=== PATIENT | female | born 1980 ===

== ENCOUNTER 2016-03-28 11:15 | Outpatient (CLI) | payer OTHER ==
[2016-03-28 12:19] VITALS: BMI 33.8
== END 2016-03-28 12:34 | disposition home or self-care (01) ==
LOC: FBCOUT 11:15 → FBC 11:15 → FBCOUT 12:34
PROVIDERS: ATTEND Advanced Practice Midwife
DX: O42.90 Premature rupture of membranes, unspecified as to length of time between rupture and onset of labor, unspecified weeks of gestation (principal); Z3A.00 Weeks of gestation of pregnancy not specified
CPT/HCPCS: 59025; 81002; G0463

== ENCOUNTER 2016-03-28 14:51 | Inpatient (IN) | payer OTHER ==
[2016-03-28 15:38] VITALS: BMI 33.8
[2016-03-28] MEDS ORDERED: IV START KIT ONE (15:55)
[2016-03-28] MEDS ORDERED: OXYTOCIN 10 UNITS/ML VIAL ONE ×2 (15:55→23:31)
[2016-03-28] MEDS ORDERED: SODIUM CHLORIDE 0.9% FLUSH 10 ML ONE (15:55)
[2016-03-28] MEDS ORDERED: MINERAL OIL 25 ML BOT ONE (15:55)
[2016-03-28] MEDS ORDERED: OXYTOCIN IN LR 0 ML IV ONE (15:56)
[2016-03-28] MEDS ORDERED: LIDOCAINE 1% (PRES FREE) 30 ML VIAL ONE (15:56)
[2016-03-28] MEDS ORDERED: LIDOCAINE Viscous 2% 15 ML UDCUP ONE (15:56)
[2016-03-28] MEDS ORDERED: PUMP TUBING ONE (15:56)
--- NOTE | 2016-03-28 15:57 | PCMAN ---
OB Admission Note - History : 2 Term: 1 : 0 Abortions (S&E): 0 Livin EDC:: 04/18/16 Gestational Age (weeks): 37 Days (#/7): 0 Admit Presentaton:: vertex by ultrasound Membrane Status: Ruptured Rupture (Date): 03/28/16 Rupture (Time): 07:30 Membranes Comment:: clear Contractions: Yes Contraction Frequency:: mild, irregular Heart Rate:: 125 Status:: Category 1 EFW:: 7 # Summary of Course:: Started care at [facility] and had one visit and a dating US that confirmed her menstrual dates. Transferred to us at 20 weeks after gap in care due to insurance change. Had consistent care since then with participation in [facility] . 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 Had spontaneous rupture of membranes with clear fluid this AM at 0730. GBS negative. Presented for evaluation this AM and was sent to walk for awhile- returned after 3 hours with early labor contractions. - Labs Blood Type: O (+) positive Hct/Hgb:: 11.2 Rubella Status: Non-immune GBS Status: Negative - Physical Exam Psych/Mental Status: Mood/Affect Appropriate Lungs: Clear to Auscultation Bilaterally Cardiovascular: Regular Rate and Rhythm Genitourinary: Normal Female Genitalia Rectal Exam: Deferred Extremities: Full ROM Skin: Normal Color, Warm, Dry - Problems (1) Premature rupture of membranes Status: Acute Code: O42.90 Assessment/Plan: A: Premature rupture of membranes at 37 weeks gestation P: Assess cx for need for ripening vs pitocin when able. Anticipate . Pt undecided about epidural, IV site and labs drawn.
[2016-03-28 17:23] LABS: HEMATOCRIT 32.1 % (37.0-47.0); HEMOGLOBIN 10.3 gm/l (12.0-16.0); MEAN CELL VOLUME 82.1 fl (81.0-99.0); MEAN CORPUSCULAR HEMOGLOBIN 26.3 pg (27.0-31.0); MEAN CORPUSCULAR HGB CONC 32.1 g/dl (33.0-37.0); RED CELL DISTRIBUTION WIDTH 14.3 % (11.5-14.5)
[2016-03-28] MEDS ORDERED: FAMOTIDINE 20 MG TABLET PO SCH (17:30)
[2016-03-28] MEDS ORDERED: CEFAZOLIN SODIUM 2 GRAM DUPLEX 2 G in Premix (D5W) 50 ml 1 EACH IV PRN (22:11)
[2016-03-28] MEDS ORDERED: LACTATED RINGERS 1,000 ML IV SCH (22:15)
--- NOTE | 2016-03-28 22:28 | PDOC36 ---
Provider Note Subject: Pre-op Note. Note: An is a 35 yo G2 para1, with SROM approx 15 hours ago, GBS neg. She is not yet in active labor but is starting to have some strong contractions. Unfortunately, baby is now in a breech position, buttocks presenting with feet to maternal right. Options discussed with pt and . section recommended. Possibility of waiting till morning discussed but I am concerned about the risk of cord prolapse, prolapse of a foot, labor, infection. Risks of the surgery and anesthesia reviewed. Consent discussed and signed. Formal US shows Breech, AMBER only 2.6cm. Posterior placenta. Imp: SROM 37 weeks with breech presentation. Plan: Primary section.
[2016-03-28] MEDS ORDERED: MORPHINE SULFATE (DURAMORPH) 1 MG/ML 10ML AMP ONE (22:30)
--- NOTE | 2016-03-28 22:30 | PDOC36 ---
Provider Note Subject: S: An is feeling ready to get her induction going. She just ate dinner. She reports very occasional, mild contractions. O: SVE: 2cm/50%/-2 Fetus: Baseline 125, moderate variability, accels present, decels absent Contractions: occasional, mild Vitals: BP 129/80, Temp 97.7 F, HR 71, RR 14 A: 35yo at 37w0d Fetus Category 1 Breech presentation PROM-x15hrs, clear fluid, vitals stable, afebrile GBS negative Hypothyroidism P: Initially discussed IOL methods with patient prior to knowledge of breech presentation. Patient was previously scanned by CNM & RN on admission to [facility] and thought to be vertex at this time. Prior to initiating misoprostol administration, CNM scanned pt with large bedside ultrasound and found patient to be breech. A formal ultrasound was ordered and breech presentation was confirmed. This was reviewed with the patient and a c/s was recommended. Dr. Caban was notified and she discussed her recommendations with the patient (see her note). Pt was tearful, but understanding of situation and agreed to a primary c/s for breech presentation. OR team called in. Fluid bolus and NPO status initiated.
[2016-03-28] MEDS ORDERED: CEFAZOLIN SODIUM 2 GRAM DUPLEX 50 ML IV ONE (22:41)
[2016-03-28] MEDS ORDERED: BUPIVACAINE 0.75% SPINAL AMPUL 2 ML ONE (23:31)
[2016-03-28] MEDS ORDERED: METOCLOPRAMIDE HCL 5 MG/ML 2ML VIAL ONE (23:31)
[2016-03-28] MEDS ORDERED: SPINAL PROCEDURAL TRAY 1 EACH ONE (23:31)
[2016-03-29] MEDS ORDERED: LANOLIN 50 APPLIC/7G TUBE TP PRN (00:50)
[2016-03-29] MEDS ORDERED: MEASLES,MUMPS&RUBELLA VACCINE 0.5 ML VIAL SUB-Q V ONE (00:50)
[2016-03-29] MEDS ORDERED: OXYTOCIN IN LR 500 ML IV ONE (00:50)
[2016-03-29] MEDS ORDERED: DIPHTH,PERTUSS(ACELL),TET VAC 0.5 ML VIAL IM V ONE (00:50)
[2016-03-29] MEDS ORDERED: MORPHINE SULFATE 10 MG/ML SYRINGE IV PRN (01:00)
[2016-03-29] MEDS ORDERED: NALOXONE HCL 0.4 MG/ML VIAL IV PRN (01:00)
[2016-03-29] MEDS ORDERED: ONDANSETRON 4 MG/2ML 2 ML VIAL IV PRN ×2 (01:00→23:00)
[2016-03-29] MEDS ORDERED: EPHEDRINE SULFATE 50 MG/ML 1ML VIAL IV PRN (01:00)
[2016-03-29] MEDS ORDERED: NALBUPHINE HCL 20 MG/ML AMP IV PRN (01:00)
[2016-03-29] MEDS ORDERED: MORPHINE SULFATE 2 MG/ML SYRINGE IV PRN (01:00)
[2016-03-29] MEDS ORDERED: MORPHINE SULFATE 4 MG/ML SYRINGE IV PRN (01:00)
[2016-03-29] MEDS ORDERED: SODIUM CHLORIDE 0.9% 100 ML IV PRN (01:02)
[2016-03-29] MEDS ORDERED: PROMETHAZINE HCL 12.5 MG in SODIUM CHLORIDE 0.9% 50 ML IV PRN (01:02)
[2016-03-29] MEDS ORDERED: PROMETHAZINE HCL 6.25 MG in SODIUM CHLORIDE 0.9% 50 ML IV PRN (01:02)
[2016-03-29] MEDS: KETOROLAC TROMETHAMINE 30 MG/ML 1 ML VIAL IV SCH ×4 (01:28→20:38)
[2016-03-29] MEDS: DIPHENHYDRAMINE HCL 50 MG/1 ML VIAL IV PRN ×2 (03:03→04:31)
[2016-03-29] MEDS ORDERED: PUMP TUBING ONE (04:21)
[2016-03-29 06:03] LABS: HEMATOCRIT 30.2 % (37.0-47.0); HEMOGLOBIN 9.7 gm/l (12.0-16.0); MEAN CELL VOLUME 83.2 fl (81.0-99.0); MEAN CORPUSCULAR HEMOGLOBIN 26.7 pg (27.0-31.0); MEAN CORPUSCULAR HGB CONC 32.1 g/dl (33.0-37.0)
--- NOTE | 2016-03-29 06:44 | US ---
EXAMINATION : OB LIMITED HISTORY: Confirm breech presentation.. Estimated gestational age 37 weeks 0 days. 2 para 1. Estimated date of delivery 04/18/2016. COMPARISONS: No prior imaging at this facility. FINDINGS: heart rate is 135 bpm. Presentation is breech with fetus facing maternal right. Placenta is posterior in location. The total bladder and stomach are within normal limits. AMBER measures 2.59 cm. IMPRESSION: Live intrauterine fetus in breech presentation as described. Findings were communicated by [facility] to the [facility] at 2144 hours 03/28/2016
[2016-03-29] MEDS: DOCUSATE SODIUM 100 MG CAPSULE PO SCH ×2 (07:29→20:38)
--- NOTE | 2016-03-29 08:15 | PCMBPN ---
Brief Post Op Note: Date of Procedure: 03/29/16 Start Time: 03/28/16 23:14 Preoperative Diagnosis: 1. Breech after SROM at term Postoperative Diagnosis: 1. Same Procedure: Primary c/section (lower uterine segment transverse incision) Surgeon: Danyell Caban Assist:Dejuan Gonzalez Anesthesia: spinal Findings: LSA breech with legs extended, girl, minimal fluid, lots of vernix BT 23:23, 9/9, weight 7lb 2 Condition: good Complications: none IV Fluids: mLs of LR Urine Output: mLs Estimated Blood Loss: 500 mLs Tourniquet Time: N/A Specimens: N/A Implants: N/A Drains: N/A
--- NOTE | 2016-03-29 10:07 | PDOC44 ---
- Subjective Day: 1 (Pt delivered just before midnight.) Resting in bed, but ready to get up and about. Pain is ok. Bleeding normal. Typical post-op course described. Reports Flatus, Reports Pain Tolerable, Reports , Reports Lochia Light - Objective Temp Pulse Resp BP Pulse Ox 98.5 F 66 16 109/69 97 03/29/16 07:34 03/29/16 07:34 03/29/16 07:34 03/29/16 07:34 03/29/16 03:00 Lab Results 03/29/16 03/28/16 05:30 16:51 WBC 12.6 H 11.3 H RBC 3.63 L 3.91 L Hgb 9.7 L 10.3 L Hct 30.2 L 32.1 L Plt Count 207 251 03/29/16 03/28/16 05:30 16:51 MCH 26.7 L 26.3 L MCHC 32.1 L 32.1 L Current Medications Generic Name Dose Route Start Last Admin Trade Name Freq PRN Reason Stop Dose Admin Diphenhydramine HCl 25 mg 03/29/16 23:00 Benadryl PO Q6H PRN Itching (Mild/Moderate) Diphenhydramine HCl 25 mg 03/29/16 23:00 Benadryl IV Q6H PRN Itching (Severe) Diphenhydramine HCl 25 - 50 mg 03/29/16 01:00 03/29/16 04:31 Benadryl IV 03/29/16 23:00 25 mg Q4H PRN Administration Itching Docusate Sodium 100 mg 03/29/16 09:00 03/29/16 07:29 Colace PO 100 mg BID JAYSON Administration Emollient Ointment 1 applic 03/29/16 00:50 [id number] TP PRN PRN sore nipples Ephedrine Sulfate 5 - 10 mg 03/29/16 01:00 Ephedrine Sulfate IV 03/29/16 23:00 Q5M PRN Lactated Ringer's 1,000 mls @ 125 mls/hr 03/29/16 00:50 Lactated Ringers IV .Q8H JAYSON Promethazine HCl 6.25 mg/ 50.25 mls @ 200 mls/hr 03/29/16 01:02 Sodium Chloride IV 03/29/16 23:00 Q4H PRN Nausea/Vomiting Promethazine HCl 12.5 mg/ 50.5 mls @ 200 mls/hr 03/29/16 01:02 Sodium Chloride IV 03/29/16 23:00 Q4H PRN Nausea/Vomiting Sodium Chloride 100 mls @ 400 mls/hr 03/29/16 01:02 Sodium Chloride 0.9% IV 03/29/16 23:00 X1 PRN FLUSH Ibuprofen 800 mg 03/30/16 02:00 Motrin PO Q6H PRN Pain Ketorolac Tromethamine 30 mg 03/30/16 02:00 Toradol IV Q6H PRN Pain (Mild/Moderate) Ketorolac Tromethamine 30 mg 03/29/16 02:00 03/29/16 07:28 Toradol IV 03/29/16 23:00 30 mg Q6H JAYSON Administration Morphine Sulfate 1 - 5 mg 03/29/16 01:00 Morphine Sulfate IV 03/29/16 23:00 Q1H PRN Pain (Breakthrough) Morphine Sulfate 1 - 5 mg 03/29/16 01:00 03/29/16 06:03 Morphine Sulfate IV 03/29/16 23:00 4 mg Q1H PRN Administration Pain (Breakthrough) Morphine Sulfate 1 - 5 mg 03/29/16 01:00 Morphine Sulfate IV 03/29/16 23:00 Q1H PRN Pain (Breakthrough) Multivi/Iron Carb/Fe Sulf/FA/Prenat 1 tab 03/29/16 09:00 Plus PO DAILY JAYSON Nalbuphine HCl 1 - 5 mg 03/29/16 01:00 Nubain IV 03/29/16 23:00 Q4H PRN Itching Naloxone HCl 0.2 - 0.4 mg 03/29/16 01:00 Narcan IV 03/29/16 23:00 Q5M PRN Ondansetron HCl 4 mg 03/29/16 23:00 Zofran IV Q6H PRN Nausea/Vomiting Ondansetron HCl 4 mg 03/29/16 01:00 Zofran IV 03/29/16 23:00 Q6H PRN Nausea/Vomiting Oxycodone HCl 5 - 10 mg 03/29/16 00:50 Roxicodone PO Q3H PRN Pain (Severe) Oxycodone/Acetaminophen 1 - 2 tab 03/29/16 00:50 Percocet 5/325 PO Q4H PRN Pain (Moderate) Sodium Chloride 10 ml 03/29/16 00:50 03/29/16 07:28 Normal Saline 10ml Flush IV 10 ml PRN PRN Administration IV Flush Sodium Chloride 10 ml 03/29/16 09:00 Normal Saline 10ml Flush IV Q8HR JAYSON - Physical Exam General: Afebrile Psych/Mental Status: Mood/Affect Appropriate Neurological: Oriented x 4, Normal Speech Lungs: Clear to Auscultation Bilaterally Cardiovascular: Regular Rate and Rhythm Fundus: Below Umbilicus Abdomen: Normal Bowel Sounds, Mild Distention Lochia: Light Skin: Normal Color, Warm, Dry Wound DIRECTOR VACCINE: Dressing Clean/Dry/Intact - Problems:Assessment/Plan (1) Premature rupture of membranes Status: Acute Assessment/Plan: A: Premature rupture of membranes at 37 weeks gestation P: Assess cx for need for ripening vs pitocin when able. Anticipate . Pt undecided about epidural, IV site and labs drawn. (2) Breech delivery Qualifiers: Fetus number: single or unspecified fetus Qualifier Code: (O32.1XX0) Maternal care for breech presentation, not applicable or unspecified Status : Acute Assessment/Plan: Breech malpresentation discovered just as pt starting into stronger labor. Primary section recommended and pt agreed. (3) delivery delivered Status: Acute Assessment/Plan: Uncomplicated LST just before midnight on 03/28/16. Disposition: Stable, Anticipate DC Home Tomorrow
[2016-03-29] MEDS: OXYCODONE HCL 5 MG TABLET PO PRN ×4 (10:39→20:38)
--- NOTE | 2016-03-29 16:53 | OP ---
AN CORTÉS [id number] DATE OF : 1980 DATE OF SURGERY: 03/28/2016 PREPROCEDURE DIAGNOSES: 1. Breech spontaneous rupture of membranes. 2. at 37 weeks gestation. POSTPROCEDURE DIAGNOSES: 1. Breech spontaneous rupture of membranes. 2. at 37 weeks gestation. PROCEDURE PERFORMED: Primary section (lower uterine segment transverse incision). SURGEONS: Danyell Caban MD ELECTRICAL ELECTRONICS ENGINEER: Dejuan Gonzalez SOCIAL MEDIA CONTENT MANAGER: Joi Julio CRNA ANESTHESIA: Spinal anesthesia was used. ESTIMATED BLOOD LOSS: 500 mL. FINDINGS: The baby girl was in a left sacrum anterior breech position with legs to the paternal right, and extended. There was minimal fluid. The baby was coated with lots of vernix. She was born at 2323 hours on 03/28/2016. She had scores of 9 at 1 minute and 9 at 5 minutes, and weighed 7 pounds 2 ounces. DESCRIPTION OF PROCEDURE: After the usual preoperative preparations were completed in the patient's labor and delivery room, An was brought to the operating room and placed on the operating room table in a sitting position. The usual monitoring leads were placed. Spinal anesthesia was then administered without difficulty. An was then placed in a supine position with a wedge under the right side. She was made comfortable with her arms out on arm posts. Once the spinal had taken effect, a Casanova catheter was placed, and the abdomen was prepped and draped for a suprapubic incision. At this point, a time out was performed verify proper patient, procedure, position, personnel, and equipment. A test was done to verify adequate anesthesia. The baby's father was the invited into the room and the surgery was begun. At 2315 hours on 03/28/2016, a transverse incision was made about the symphysis pubis with a fresh knife. This was carefully carried down to the adipose layer with sharp and blunt dissection and using cautery for hemostasis. The fascia was incised the length of the incision. It was mobilized superiorly and inferiorly. The muscles were then in the midline. The peritoneum was identified and opened vertically. There was a small amount of free fluid in the peritoneal cavity. The Grover retractor was placed and this gave excellent visualization of the lower uterine segment. The visceral peritoneum was opened transversely and the bladder was mobilized inferiorly. A transverse incision was made across the lower uterine segment with a scalpel. This was carefully carried down through a really thick muscle layer until membranes were visible. There was virtually no fluid around the baby. Membranes were opened. The baby was found to be in a left sacral anterior position. With some difficulty, I was able to bring the breech into the incision. Then with excellent fundal pressure by my first assistant manager, the breech was delivered to the level of the baby's knees. At this point with gently flexing the legs were delivered without difficulty. The torso was fairly long, and was delivered to the shoulder blades, then the arms were gently eased out anteriorly by the rotating the baby slightly and splinting her neck, we were able to deliver the head without difficulty. This was a baby girl who seemed a little bit surprised at being born. It took her a little time to take her first breath. She was shown to her mother through the clear drape and cord was allowed to continue pulsating for nearly a minute. It was then clamped and cut and the baby was handed to the awaiting nurse for evaluation. She actually was weighed at 7 pounds 2 ounces and Apgars of 9 at 1 minute, and 9 at 5 minutes. She was born at 2323 hours. Cord blood was obtained. The placenta was then delivered without difficulty. It was found to be posterior and fundal. All blood clots and debris were removed from the uterus. The uterus was then brought out of the uterine incision, and was found to be penny very well. Fallopian tubes, and ovaries appeared normal. Two clamps were placed in the uterine incision, and then this was closed with continuous interlocking suture of 1-Chromic. The second layer was then used to imbricate the first layer, and this gave excellent hemostasis. The pelvis was well irrigated with warm saline, and all blood clots and debris were removed. The uterus was placed back within peritoneal cavity. Further irrigation showed a small amount of bleeding from the right angle. A single figure of eight suture of 0-Chromic was placed, and the cautery was also used. This gave good hemostasis. Lap sponge and instrument counts were reported as corrected. The abdomen was then closed in layers as follows: Peritoneum and muscle were reapproximated in the midline with some 2-0 Vicryl. The fascia was closed with 0-PDS. The adipose layer was closed with some 2-0 plain suture. The skin was then reapproximated with 4-0 Monocryl. Steri-Strips were placed followed by a bandage. The patient was then cleaned up. She was transferred to her bed and taken to her recovery room in stable condition. LAZ/celeste
[2016-03-29] MEDS ORDERED: LEVOTHYROXINE SODIUM 100 MCG TABLET PO ONE (20:00)
[2016-03-29] MEDS ORDERED: DIPHENHYDRAMINE HCL 50 MG/1 ML VIAL IV PRN (23:00)
[2016-03-29] MEDS ORDERED: DIPHENHYDRAMINE HCL 25 MG CAPSULE PO PRN (23:00)
[2016-03-30] MEDS: OXYCODONE HCL 5 MG TABLET PO PRN ×3 (01:28→16:03)
[2016-03-30] MEDS ORDERED: KETOROLAC TROMETHAMINE 30 MG/ML 1 ML VIAL IV PRN (02:00)
[2016-03-30] MEDS: IBUPROFEN 800 MG TABLET PO PRN ×3 (05:39→20:31)
[2016-03-30] MEDS: LACTATED RINGERS 1,000 ML IV SCH (07:22)
[2016-03-30] MEDS: PRENATAL VIT/FE FUMARATE/FA 1 TABLET PO SCH ×2 (07:22→17:10)
--- NOTE | 2016-03-30 07:35 | PDOC44 ---
- Subjective Day: 2 Reports Flatus, Reports Pain Tolerable, Reports Other ([email or web address] removed this AM) - Objective Temp Pulse Resp BP Pulse Ox 98.2 F 74 16 111/61 97 03/30/16 00:04 03/30/16 00:04 03/30/16 00:04 03/30/16 00:04 03/29/16 03:00 Current Medications Generic Name Dose Route Start Last Admin Trade Name Freq PRN Reason Stop Dose Admin Diphenhydramine HCl 25 mg 03/29/16 23:00 Benadryl PO Q6H PRN Itching (Mild/Moderate) Diphenhydramine HCl 25 mg 03/29/16 23:00 Benadryl IV Q6H PRN Itching (Severe) Docusate Sodium 100 mg 03/29/16 09:00 03/29/16 20:38 Colace PO 100 mg BID JAYSON Administration Emollient Ointment 1 applic 03/29/16 00:50 [id number] TP PRN PRN sore nipples Lactated Ringer's 1,000 mls @ 125 mls/hr 03/29/16 00:50 03/30/16 07:22 Lactated Ringers IV Not Given .Q8H JAYSON Ibuprofen 800 mg 03/30/16 02:00 03/30/16 05:39 Motrin PO 800 mg Q6H PRN Administration Pain Ketorolac Tromethamine 30 mg 03/30/16 02:00 Toradol IV Q6H PRN Pain (Mild/Moderate) Multivi/Iron Carb/Fe Sulf/FA/Prenat 1 tab 03/29/16 09:00 03/30/16 07:22 Plus PO Not Given DAILY JAYSON Ondansetron HCl 4 mg 03/29/16 23:00 Zofran IV Q6H PRN Nausea/Vomiting Oxycodone HCl 5 - 10 mg 03/29/16 00:50 03/30/16 05:39 Roxicodone PO 10 mg Q3H PRN Administration Pain (Severe) Oxycodone/Acetaminophen 1 - 2 tab 03/29/16 00:50 Percocet 5/325 PO Q4H PRN Pain (Moderate) Sodium Chloride 10 ml 03/29/16 00:50 03/30/16 05:39 Normal Saline 10ml Flush IV 10 ml PRN PRN Administration IV Flush Sodium Chloride 10 ml 03/29/16 09:00 03/30/16 07:22 Normal Saline 10ml Flush IV Not Given Q8HR JAYSON - Physical Exam General: Afebrile, No Acute Distress Fundus: Firm, Below Umbilicus Abdomen: No Tenderness, No Distention Wound SCREW MACHINE SET UP OPERATOR: Dressing in Place, Dressing Clean/Dry/Intact Disposition: Stable (may shower, remove dressing in shower. regular postop care. )
[2016-03-30] MEDS: OXYCODONE/ACETAMINOPHEN 5/325 MG TABLET PO PRN ×2 (11:50→20:31)
[2016-03-30] MEDS: DOCUSATE SODIUM 100 MG CAPSULE PO SCH ×2 (17:10→20:31)
[2016-03-31] MEDS: OXYCODONE HCL 5 MG TABLET PO PRN ×3 (01:30→13:20)
[2016-03-31 07:58] VITALS: BP 118/68
[2016-03-31] MEDS: IBUPROFEN 800 MG TABLET PO PRN (07:59)
--- NOTE | 2016-03-31 09:12 | PDOC39B ---
Hospital Course: ADMIT DATE: 03/28/16 DISCHARGE DATE: 03/31/16 ADMISSION DIAGNOSES: Term in labor, breech PROCEDURES: Primary c/section HISTORY OF PRESENT ILLNESS: 35 year old G2 T1 L1 at 37 weeks 0 days presenting with SROM, breech in early labor. HOSPITAL COURSE: The patient had an uncomplicateed JOSÉ transverse c/section. She has had an uncomplicated post-op recovery. By day of discharge the patient is ambulating, eating, voiding, and passing flatus without difficulty. Pain is controlled and lochia is appropriate. She is . - Physical Exam Vital Signs: Temp Pulse Resp BP Pulse Ox 97.8 F 75 16 118/68 97 03/31/16 07:54 03/31/16 07:54 03/31/16 01:32 03/31/16 07:54 03/29/16 03:00 General: Afebrile Psych/Mental Status: Mood/Affect Appropriate, Bonding Well HEENT: Atraumatic Lungs: Clear to Auscultation Bilaterally Cardiovascular: Regular Rate and Rhythm Fundus: Firm, Below Umbilicus Abdomen: Normal Bowel Sounds Lochia: Light Extremities: Full ROM Skin: Normal Color Wound: Dressing in Place, Well Approximated - Discharge Diagnosis (1) Premature rupture of membranes Status: Acute Assessment/Plan: A: Premature rupture of membranes at 37 weeks gestation P: Assess cx for need for ripening vs pitocin when able. Anticipate . Pt undecided about epidural, IV site and labs drawn. (2) Breech delivery Qualifiers: Fetus number: single or unspecified fetus Qualifier Code: (O32.1XX0) Maternal care for breech presentation, not applicable or unspecified Status : Acute Assessment/Plan: Breech malpresentation discovered just as pt starting into stronger labor. Primary section recommended and pt agreed. (3) delivery delivered Status: Acute Assessment/Plan: Uncomplicated LST just before midnight on 03/28/16. - Discharge Plan Condition: Good Disposition: Home Prescriptions: Ibuprofen [IBUPROFEN 800 MG TABLET (SHF)] 800 mg PO Q6H PRN #100 tablet PRN Reason: Pain Oxycodone HCl/Acetaminophen [PERCOCET 5/325 MG TABLET (SHF)] 1 - 2 tab PO Q4H PRN #60 tablet PRN Reason: Pain (Moderate) Follow-Up: Danyell Caban MD [Staff Physician] - In 7-10 days
[2016-03-31] MEDS ORDERED: HYDROCORTISONE 1% CREAM 20 APPLIC/30 G TUBE TP SCH (11:00)
[2016-03-31] MEDS: DOCUSATE SODIUM 100 MG CAPSULE PO SCH (13:23)
== END 2016-03-31 14:33 | disposition home or self-care (01) | DRG 766 ==
LOC: FBC 14:51
PROVIDERS: ADMIT Obstetrics & Gynecology; ATTEND Obstetrics & Gynecology
PROC: 10D00Z1 Extraction of Products of Conception, Low, Open Approach (ICD-10-PCS; principal; 2016-03-28)
DX: O32.1XX0 Maternal care for breech presentation, not applicable or unspecified (principal); O42.92 Full-term premature rupture of membranes, unspecified as to length of time between rupture and onset of labor; O99.02 Anemia complicating childbirth; O99.284 Endocrine, nutritional and metabolic diseases complicating childbirth; E03.9 Hypothyroidism, unspecified; Z3A.37 37 weeks gestation of pregnancy; Z37.0 Single live birth

== ENCOUNTER 2016-04-02 12:27 | Outpatient (CLI) | payer OTHER | END 2016-04-02 12:28 | disposition home or self-care (01) | LOC: BABIESSH 12:27 | PROVIDERS: ATTEND Advanced Practice Midwife | DX: Z39.1 Encounter for care and examination of lactating mother (principal) ==